=== PATIENT | female | born 1970 | race African-American/Black ===

== ENCOUNTER → 2018-04-29 | Outpatient (CLI) | payer OTHER ==
--- NOTE | 2018-05-07 09:11 | Diagnostic Imaging Report ---
#[id number] - MGSCRBIL #BILATERAL DIGITAL SCREENING MAMMOGRAM WITH CAD: 04/29/2018 CLINICAL: Routine screening. Comparison is made to exams dated: 12/27/2015 mammogram and 08/31/2014 mammogram - [facility]. Current study contains 4 films. The tissue of both breasts is heterogeneously dense. This may lower the sensitivity of mammography. Current study was also evaluated with a Computer Aided Detection (CAD) system. There are benign calcifications in both breasts. There also are benign nodules in both breasts. Additionally there are post operative findings in the right breast with a scar marker present. No significant masses, calcifications, or other findings are seen in either breast. There has been no significant interval change. IMPRESSION: BENIGN There is no mammographic evidence of malignancy. A 1 year screening mammogram is recommended. The patient will be notified by letter of the results. Jessee Reynolds Jr., D.O. cw/:05/06/2018 12:57:53 Awake Overnight Counselor: Carolina DIAZ(R)(M), [facility] letter sent: Compared to Prior B9 Mammogram BI-RADS: 2 Benign
== END ==
LOC: MAMMO 10:59
PROVIDERS: ATTEND Internal Medicine
DX: Z12.31 Encounter for screening mammogram for malignant neoplasm of breast (principal)
CPT/HCPCS: 77067

== ENCOUNTER → 2018-09-07 | Outpatient (CLI) | payer OTHER ==
--- NOTE | 2018-09-07 15:22 | Diagnostic Imaging Report ---
EXAMINATION: PA and lateral views of the chest. COMPARISON: None CLINICAL HISTORY: DISCUSSION: Lines/tubes: None. Lungs: The lungs are well inflated and clear. There is no evidence of pneumonia or pulmonary edema. Pleura: There is no pleural effusion or pneumothorax. Heart and mediastinum: The cardiomediastinal silhouette is normal. Bones and soft tissues: No acute bony abnormalities. Cervical spine fusion hardware and stabilization collar partially visualized. IMPRESSION: No acute cardiopulmonary abnormalities. Signed by: Dr. Leroy Holder M.D. on 09/07/2018 3:19 PM
== END ==
LOC: RAD 12:52
PROVIDERS: ATTEND Internal Medicine
DX: R06.02 Shortness of breath (principal); J41.0 Simple chronic bronchitis
CPT/HCPCS: 71046